=== PATIENT | female | born 2000 | race American Indian/Alaskan Native ===

== ENCOUNTER 2022-06-22 14:07 | Emergency (ER) | payer SELFPAY ==
[2022-06-22 14:48] VITALS: BP 141/98
[2022-06-22 16:24] LABS: Basophils % (Auto) 0.6 % (0.0-1.8); Eosinophils # (Auto) 0.1 K/mm3 (0.0-0.4); Eosinophils % (Auto) 1.7 % (0.0-4.3); Hematocrit 40.3 % (30.3-42.9); Hemoglobin 13.4 gm/dl (10.1-14.3); Lymphocytes # (Auto) 1.3 K/mm3 (1.2-5.4); Lymphocytes % (Auto) 19.1 % (13.4-35.0); Mean Corpuscular HGB Conc 33 % (30-34); Mean Corpuscular Volume 90 fl (79-97); Monocytes # (Auto) 0.9 K/mm3 (0.0-0.8); Monocytes % (Auto) 12.3 % (0.0-7.3); Platelet Count 288 K/mm3 (140-440); Red Blood Count 4.49 M/mm3 (3.65-5.03); Red Cell Distribution Width 14.4 % (13.2-15.2)
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
[2022-06-22] MEDS ORDERED: BACITRACIN ZINC OINT 28.4 GM TP ONE (17:31)
[2022-06-22 18:07] LABS: Mucus,Urine FEW /HPF
[2022-06-22 18:10] LABS: Amphetamine Screen,Urine Negative; Benzodiazepines Screen,Urine Negative; Cocaine Screen,Urine Negative; Methadone Screen,Urine Negative; Opiate Screen,Urine Negative
[2022-06-22 18:11] LABS: RBC,Urine < 182.0 /HPF (0.0-6.0)
[2022-06-22 18:13] LABS: Color,Urine Yellow (Yellow)
[2022-06-22 18:23] LABS: Cannabinoid Screen,Urine Positive
[2022-06-22 20:35] LABS: BUN/Creatinine Ratio 9; Blood Urea Nitrogen 7 mg/dL (7-17); Calcium 8.8 mg/dL (8.4-10.2); Hemolysis Index 15
[2022-06-22] MEDS ORDERED: FLUCONAZOLE 200 MG TAB PO ONE (20:45)
[2022-06-22] MEDS ORDERED: levoFLOXacin 500 MG TAB PO SCH (21:00)
== END 2022-06-22 22:00 | disposition home or self-care (01) ==
LOC: ED 14:07
DX: S70.212A Abrasion, left hip, initial encounter (principal); F39 Unspecified mood [affective] disorder; F17.210 Nicotine dependence, cigarettes, uncomplicated; Z72.89 Other problems related to lifestyle; Z79.899 Other long term (current) drug therapy; X58.XXXA Exposure to other specified factors, initial encounter; Y93.89 Activity, other specified; Y92.89 Other specified places as the place of occurrence of the external cause; Y99.8 Other external cause status
CPT/HCPCS: 36415; 80048; 80307; 80320; 81001; 85025; 87086; 99283; G0480